=== PATIENT | female | born 1960 | race African-American/Black ===

== ENCOUNTER → 2016-11-11 | Outpatient (CLI) | payer BC ==
[~2016-11-11] MED LIST: ALPRAZOLAM; AVALIDE 300-121 EACH PO; BENADRYL25 MG PO; CALAN; CATAPRES0.3 MG PO; CLONIDINE; COMPAZINE10 MG PO; HYDROCODON-ACE1 EAC7 PO
== END ==
LOC: CAT 10:47
DX: K57.30 Diverticulosis of large intestine without perforation or abscess without bleeding (principal); K52.9 Noninfective gastroenteritis and colitis, unspecified

== ENCOUNTER → 2018-09-17 | Outpatient (CLI) | payer BC | LOC: RAD 07:24 | DX: Z12.31 Encounter for screening mammogram for malignant neoplasm of breast (principal) ==